=== PATIENT | female | born 1940 | race Caucasian/White ===

== ENCOUNTER 2017-04-11 13:54 | Emergency (ER) | payer MEDICARE, OTHER ==
[2017-04-11 14:39] LABS: Bilirubin Negative (Negative); Blood, Urine Negative (Negative); Clarity CLEAR (Clear); Glucose, Urine (Dipstick) Negative (Negative); Leukocyte Negative (Negative); Nitrite Negative (Negative); Protein, Urine (Dipstick) Trace mg/dL (Neg-Trace); Specific Gravity, Urine 1.027 (1.002-1.036); Urobilinogen 0.2 mg/dL (0.2-1.0)
[2017-04-11 14:43] LABS: #Eosinphils 0.1 thou/uL (0.0-0.7); #Lymphocytes 1.7 thou/uL (1.20-3.40); #Monocytes 0.6 thou/uL (0.11-0.59); %Basophils 0.5 % (0.0-1.0); %Eosinophils 1.1 % (0.0-10.0); %Monocytes 5.6 % (0.0-10.0); %Neutrophils 76.9 % (42.0-75.0); Hemoglobin 14.6 g/dL (12.0-16.0); Mean Corpuscular Hemoglobin 28.9 pg (27.0-31.0); Mean Corpuscular Volume 90.4 fl (81.0-99.0); Mean Platelet Volume 8.2 fL (7.4-10.4); Platelet Count 225 thou/uL (130-400); RBC Distribution Width 13.6 % (11.5-14.5); Red Blood Cell (RBC) Count 5.05 mill/uL (4.20-5.40); White Blood Cell (WBC) Count 10.4 thou/uL (4.8-10.8)
[2017-04-11 15:07] LABS: ALT (SGPT) 13 U/L (8-55); AST (SGOT) 17 U/L (5-34); Albumin 3.6 g/dL (3.4-4.8); Alkaline Phosphatase 83 U/L (40-150); Anion Gap 13 mmol/L (10-20); BUN (Urea Nitrogen) 20 mg/dL (9.8-20.1); Bilirubin, Total 0.4 mg/dL (0.2-1.2); Calc. Creatinine Clearance 0 mL/min (70-130); Calcium 9.3 mg/dL (7.8-10.44); Carbon Dioxide 24 mmol/L (23-31); Chloride 107 mmol/L (98-107); Estimated GFR-MDRD 51; Globulin 3.6 g/dL (2.4-3.5); Glucose 111 mg/dL (83-110); Potassium 4.3 mmol/L (3.5-5.1); Protein, Total 7.2 g/dL (6.0-8.3); Sodium 140 mmol/L (136-145)
[2017-04-11] MEDS ORDERED: Diphenoxylate HCl/Atropine Tablet ONE (15:51)
== END 2017-04-11 15:58 | disposition home or self-care (01) ==
LOC: ERS 13:54
DX: R19.7 Diarrhea, unspecified (principal); F41.9 Anxiety disorder, unspecified; F32.9 Major depressive disorder, single episode, unspecified; Z79.899 Other long term (current) drug therapy
CPT/HCPCS: 36415; 80053; 81003; 85025; 99284

== ENCOUNTER 2017-04-19 11:27 | Emergency (ER) | payer MEDICARE, OTHER ==
[2017-04-19 13:15] LABS: #Eosinphils 0.1 thou/uL (0.0-0.7); #Lymphocytes 1.8 thou/uL (1.20-3.40); #Monocytes 0.6 thou/uL (0.11-0.59); #Neutrophils 6.8 thou/uL (1.40-6.50); %Basophils 0.1 % (0.0-1.0); %Eosinophils 0.9 % (0.0-10.0); %Lymphocytes 18.8 % (21.0-51.0); %Monocytes 6.8 % (0.0-10.0); %Neutrophils 73.4 % (42.0-75.0); Hemoglobin 14.6 g/dL (12.0-16.0); Mean Corpuscular Hemoglobin 28.4 pg (27.0-31.0); Mean Corpuscular Volume 91.8 fl (81.0-99.0); Mean Platelet Volume 8.7 fL (7.4-10.4); Platelet Count 194 thou/uL (130-400); Red Blood Cell (RBC) Count 5.12 mill/uL (4.20-5.40); White Blood Cell (WBC) Count 9.3 thou/uL (4.8-10.8)
[2017-04-19 13:26] LABS: PTT 24.8 SEC (22.9-36.1); Prothrombin Time 13.7 SEC (12.0-14.7)
[2017-04-19 13:35] LABS: ALT (SGPT) 10 U/L (8-55); AST (SGOT) 16 U/L (5-34); Albumin 3.6 g/dL (3.4-4.8); Alkaline Phosphatase 80 U/L (40-150); Anion Gap 14 mmol/L (10-20); BUN (Urea Nitrogen) 19 mg/dL (9.8-20.1); Bilirubin, Total 0.4 mg/dL (0.2-1.2); CK (CPK) 37 U/L (29-168); Calc. Creatinine Clearance 0 mL/min (70-130); Calcium 9.3 mg/dL (7.8-10.44); Carbon Dioxide 23 mmol/L (23-31); Chloride 104 mmol/L (98-107); Estimated GFR-MDRD 54; Globulin 3.1 g/dL (2.4-3.5); Glucose 85 mg/dL (83-110); Lipase 9 U/L (8-78); Potassium 3.9 mmol/L (3.5-5.1); Protein, Total 6.7 g/dL (6.0-8.3); Sodium 137 mmol/L (136-145)
[2017-04-19] MEDS ORDERED: ISOVUE-370 76%-LOCM 1 ML ONE (13:38)
[2017-04-19 13:42] LABS: CKMB 1.4 ng/mL (0-6.6); Troponin I 0.056 ng/mL (< 0.028)
--- NOTE | 2017-04-19 13:44 | RAD ---
PORTABLE CHEST: HISTORY: Cough. Diarrhea. COMPARISON: Prior chest film from 04/08/2008. FINDINGS: The heart size is mildly prominent but stable. There is a calcified nodule in the left lung base, wh ich is stable. There is an opacity along the cardiac border, in the left mid lung, which is a stable finding. There is no evidence of vascular congestion, edema, or effusion. No focal infiltrate. Figueroa rgical clips in the right axilla indicate prior right breast procedure. IMPRESSION: Stable findings without acute interval change. POS: [facility]
[2017-04-19 15:21] LABS: Troponin I 0.051 ng/mL (< 0.028)
--- NOTE | 2017-04-19 15:44 | CT ---
CT ABDOMEN AND PELVIS WITH CONTRAST 04/19/17 COMPARISON: 10/18/08. HISTORY: Chronic diarrhea and abdominal pain. TECHNIQUE: Multiple contiguous axial images were obtained in a CT of the abdomen and pelvis with contrast. Coron al reformats were performed. FINDINGS: There are subcentimeter hypodensities in the bilateral kidneys which likely represents cysts. The hunter er, gallbladder, adrenal glands, spleen, and pancreas are unremarkable. No free air, free fluid, or s tranding changes are seen in the abdomen and pelvis. Patient is status post hysterectomy. The large and small bowel are unremarkable. Atherosclerotic calcifications are seen in the aorta. No abdominal or pelvic lymphadenopathy are seen . Degenerative changes are seen in the spine. The visualized inferior thorax and abdominal wall soft ti ssues are unremarkable. IMPRESSION: 1. No evidence of acute intra-abdominal or pelvic abnormality. 2. Renal cysts. POS: [facility]
[2017-04-19 16:16] LABS: Bilirubin Negative (Negative); Blood, Urine Trace (Negative); Glucose, Urine (Dipstick) Negative (Negative); Leukocyte Negative (Negative); Nitrite Negative (Negative); Protein, Urine (Dipstick) Negative (Neg-Trace); Urobilinogen 0.2 mg/dL (0.2-1.0)
[2017-04-19 16:27] LABS: Clarity CLEAR (Clear)
[2017-04-19 16:33] LABS: Bacteria/HPF 1+ HPF (None Seen); Hyaline Casts/LPF NONE SEEN LPF (0-3 Hyaline); RBC/HPF 0-3 HPF (0-3); WBC/HPF 0-3 HPF (0-3)
--- NOTE | 2017-04-23 17:46 | EKG ---
Test Reason : DIAGNOSING PURPOSES Blood Pressure : / mmHG Vent. Rate : 079 BPM Atrial Rate : 079 BPM P-R Int : 128 ms QRS Dur : 092 ms QT Int : 412 ms P-R-T Axes : 042 -06 043 degrees QTc Int : 472 ms Normal sinus rhythm Normal ECG Confirmed by BETITO CHAMPAGNE, SRINIVAS ([id number]), editor house organ PATRICIA ENGLE ([id number]) on 04/23/2017 5:46:12 PM Referred By: Confirmed By:SRINIVAS CISSE MD
== END 2017-04-19 16:00 | disposition home or self-care (01) ==
LOC: ERS 11:27
DX: E86.0 Dehydration (principal); R19.7 Diarrhea, unspecified; R79.89 Other specified abnormal findings of blood chemistry; F41.9 Anxiety disorder, unspecified; F32.9 Major depressive disorder, single episode, unspecified; Z79.899 Other long term (current) drug therapy; Z85.3 Personal history of malignant neoplasm of breast
CPT/HCPCS: 36415; 71045; 74177; 80053; 81003; 81015; 82550; 82553; 83605; 83690; 83880; 84484; 85025; 85610; 85730; 87040; 87086; 93005; 96360; 96361

== ENCOUNTER 2017-08-19 11:03 | Outpatient (CLI) | payer MEDICARE, OTHER | END 2017-08-19 11:04 | disposition home or self-care (01) | LOC: BICMAMMO 11:03 | PROVIDERS: ATTEND Family Medicine | DX: Z12.31 Encounter for screening mammogram for malignant neoplasm of breast (principal); Z85.3 Personal history of malignant neoplasm of breast | CPT/HCPCS: 77063; 77067 ==

== ENCOUNTER 2017-12-20 09:53 | Outpatient (CLI) | payer MEDICARE, OTHER ==
--- NOTE | 2017-12-20 12:00 | RAD ---
TWO VIEW CHEST: History: Cough. Comparison: 2007 FINDINGS: Lungs show no evidence of infiltrate. The heart is mildly enlarged but relatively stable from prior e xam. Vascular markings show mild engorgement which is slightly more prominent than previously. Calcif ied granuloma in the left lower lung is again noted. No effusion. Osseous structures are unremarkable for age. IMPRESSION: Borderline cardiomegaly and mild vascular engorgement. No focal infiltrate identified. POS: [facility]
== END 2017-12-20 09:54 | disposition home or self-care (01) ==
LOC: BICRAD 09:53
PROVIDERS: ATTEND Family Medicine
DX: R05 Cough (principal); I51.7 Cardiomegaly; R09.89 Other specified symptoms and signs involving the circulatory and respiratory systems
CPT/HCPCS: 71046

== ENCOUNTER 2018-07-28 12:27 | Outpatient (CLI) | payer MEDICARE, OTHER ==
--- NOTE | 2018-07-28 12:42 | RAD ---
Exam: CHEST 2 VIEWS: COMPARISON: 12/20/2017. HISTORY: Dyspnea FINDINGS: Chronic changes in lung parenchyma. No pleural effusion. Normal cardiac silhouette. Minimal atheroscl erosis of the aorta. No pneumothorax or osseous abnormalities. Right axillary surgical clips are redemonstrated. IMPRESSION: No significant interval change. Transcribed Date/Time: 07/28/2018 1:07 PM
== END 2018-07-28 12:28 | disposition home or self-care (01) ==
LOC: RAD 12:27
PROVIDERS: ATTEND Internal Medicine Pulmonary Disease
DX: R06.00 Dyspnea, unspecified (principal)
CPT/HCPCS: 71046

== ENCOUNTER 2018-11-06 14:26 | Outpatient (CLI) | payer MEDICARE, OTHER ==
[2018-11-06 17:27] LABS: #Basophils 0.1 thou/uL (0.0-0.2); #Eosinphils 0.2 thou/uL (0.0-0.7); #Lymphocytes 2.3 thou/uL (1.20-3.40); #Monocytes 0.5 thou/uL (0.11-0.59); #Neutrophils 5.6 thou/uL (1.40-6.50); %Basophils 0.8 % (0.0-1.0); %Eosinophils 2.4 % (0.0-10.0); %Monocytes 5.9 % (0.0-10.0); %Neutrophils 64.9 % (42.0-75.0); Mean Corpuscular HGB CONC 33.3 g/dL (32.0-36.0); Mean Corpuscular Hemoglobin 30.1 pg (27.0-31.0); Mean Corpuscular Volume 90.5 fL (78.0-98.0); Mean Platelet Volume 9.2 fL (7.4-10.4); Platelet Count 226 thou/uL (130-400); RBC Distribution Width 13.4 % (11.5-14.5); Red Blood Cell (RBC) Count 4.65 mill/uL (4.20-5.40); White Blood Cell (WBC) Count 8.6 thou/uL (4.8-10.8)
[2018-11-06 18:27] LABS: ALT (SGPT) 14 U/L (8-55); AST (SGOT) 15 U/L (5-34); Alkaline Phosphatase 95 U/L (40-150); Anion Gap 13 mmol/L (10-20); BUN (Urea Nitrogen) 19 mg/dL (9.8-20.1); Bilirubin, Total 0.2 mg/dL (0.2-1.2); Calc. Creatinine Clearance 0 mL/min (70-130); Carbon Dioxide 24 mmol/L (23-31); Cardiac Risk 5.2 (Less than 4.5); Chloride 107 mmol/L (98-107); Cholesterol 230 mg/dl (< 200 Desired); Estimated GFR-MDRD 40; Globulin 2.5 g/dL (2.4-3.5); Glucose 102 mg/dL (83-110); HDL Cholesterol 44 mg/dL (>60 Neg Risk); LDL Cholesterol, Calculated 152 mg/dL; Potassium 4.2 mmol/L (3.5-5.1); Protein, Total 6.5 g/dL (6.0-8.3); Sodium 140 mmol/L (136-145); Triglycerides 169 mg/dL (Less than 150)
== END 2018-11-06 14:27 | disposition home or self-care (01) ==
LOC: RAD-FRANK 14:26
PROVIDERS: ATTEND Family Medicine
DX: E53.8 Deficiency of other specified B group vitamins (principal); I10 Essential (primary) hypertension; R53.82 Chronic fatigue, unspecified
CPT/HCPCS: 36415; 80053; 80061; 82607; 84443; 85025

== ENCOUNTER 2018-12-21 13:20 | Outpatient (CLI) | payer MEDICARE, OTHER ==
--- NOTE | 2018-12-21 14:56 | ULT ---
Abdominal aortic ultrasound CLINICAL HISTORY: Screening FINDINGS: Proximal abdominal aorta measures 2.3 cm in diameter, mid abdominal aorta 2.1 cm, and dista l abdominal aorta 1.8 cm. No aneurysmal dilatation of the iliac arteries is visualized. There is limited visualization by persistent shadowing of the retroperitoneum, due to bowel content. IMPRESSION: No sonographic evidence of aneurysmal dilatation of the imaged abdominal aorta.
--- NOTE | 2018-12-21 15:02 | ULT ---
BILATERAL LOWER EXTREMITY ARTERIAL ULTRASOUND: CLINICAL HISTORY: Femoral bruit TECHNIQUE: Sharma-scale and Doppler color-flow with spectral analysis. FINDINGS: Triphasic wave-form of the right common femoral artery is demonstrated and there is a predominant bip hasic wave-form of the left common femoral artery. Otherwise bilaterally from the level of the proximal thigh and distally there is diffuse monophasic wave-form elicited. The peak systolic velocity of the lower extremity arterial system of the right lower extremity is 164 cm/s at level of profunda femoris artery. The peak systolic velocity of the left lower extremity is at the level of the left common femoral artery and is 179 cm/s. IMPRESSION: Predominant monophasic wave-form throughout each lower extremity as above from the level of the proxi mal thigh distally. This does indicate a moderate to severe degree of peripheral vascular disease involving each lower extremity. Vascular surgery consultation would prove useful for further care. Transcribed Date/Time: 12/21/2018 3:23 PM
== END 2018-12-21 13:21 | disposition home or self-care (01) ==
LOC: ULT 13:20
PROVIDERS: ATTEND Family Medicine
DX: R09.89 Other specified symptoms and signs involving the circulatory and respiratory systems (principal); I73.9 Peripheral vascular disease, unspecified
CPT/HCPCS: 76775; 93923

== ENCOUNTER 2019-02-08 13:16 | Outpatient (CLI) | payer MEDICARE, OTHER ==
--- NOTE | 2019-02-08 13:47 | ULT ---
Pelvic sonogram transabdominal imaging HISTORY: Pelvic pain. Pelvic mass. FINDINGS: Urinary bladder is unremarkable. Uterus surgically absent. No free fluid is evident. Neither ovary is visualized. No solid or cystic masses. IMPRESSION: Status post hysterectomy. No significant abnormalities are demonstrated.
--- NOTE | 2019-02-08 13:52 | ULT ---
Venous duplex sonogram right lower extremity HISTORY: Right leg pain and edema. FINDINGS: Right common femoral vein and greater saphenous junction were evaluated along with the femo ral, deep femoral, popliteal, and posterior tibial veins. There is good color and spectral Doppler flow, compression, and augmentation. IMPRESSION: No sonographic evidence of DVT within the right lower extremity.
== END 2019-02-08 13:17 | disposition home or self-care (01) ==
LOC: ULT 13:16
PROVIDERS: ATTEND Family Medicine
DX: R60.0 Localized edema (principal); R19.00 Intra-abdominal and pelvic swelling, mass and lump, unspecified site; Z90.710 Acquired absence of both cervix and uterus
CPT/HCPCS: 76856

== ENCOUNTER 2019-07-18 07:56 | Outpatient (CLI) | payer MEDICARE, OTHER ==
--- NOTE | 2019-07-18 09:38 | CT ---
EXAM: CT angiogram abdomen, pelvis, and bilateral lower extremities with intravenous contrast and 3-D recon structions PROVIDED CLINICAL HISTORY: Right lower extremity pain. History of prior surgery on arteries right lower extremity. Patient state s pain and swelling right lower extremity. COMPARISON: CT abdomen and pelvis on 04/19/2017 FINDINGS: Minimal bibasilar groundglass densities are seen likely attributable to atelectasis. The heart is mil dly enlarged. A hiatal hernia is present with the fundus of the stomach above the level of the hemidiaphragms. The liver, spleen, pancreas, bilateral adrenal glands, and partially distended urinary bladder demons trate a normal CT appearance. Subcentimeter too small to characterize hypodense lesions are seen in each kidney. There are also low-density areas within each renal hilum which were present on the prior study but slightly more prominent than on the prior exam. Findings on the left are likely attributable to parapelvic renal cysts. However, mild bilateral hydronephrosis is a possibility. The ureters are normal in caliber bilaterally, and no renal or ureteral calculi are seen. Renal collecting structures are difficult further evaluate without delayed imaging. Atherosclerotic calcifications and plaque are seen in the abdominal aorta and iliac arteries. The abd ominal aorta is normal in caliber without evidence of an aortic dissection. Mild atherosclerotic plaque is seen within the proximal celiac artery with mild degree of narrowing. The celiac and superi or mesenteric arteries are otherwise patent. Inferior mesenteric artery is also patent. Atherosclerotic plaque limits evaluation of the renal artery origins. However, there is suggestion of at least mild narrowing involving each renal artery origin. Mild multifocal narrowing is seen involving the right common iliac artery. The left common iliac mariola ry is patent. Mild narrowing is present at the origin of each internal iliac artery. Bilateral external iliac arteries are patent. Right lower extremity: Right common femoral artery is patent. Mild narrowing is present involving the proximal right superfi cial femoral artery with additional multifocal areas of mild narrowing with moderate narrowing seen at the level of the adductor canal. Right profunda femoral artery is patent. Popliteal artery is bell nt, and there is evidence of a three-vessel runoff to the right lower extremity. Subcutaneous soft tissue swelling is seen involving the right lower extremity below the level of the knee with greater degree of subcutaneous soft tissue swelling at the level of the ankle and involving the right foot. Left lower treatment: Left common femoral and profunda femoral arteries are patent. Mild atherosclerotic plaque is seen thr oughout the left superficial femoral artery with multifocal areas of mild narrowing seen greatest at the level of the adductor canal. A vascular stent is present in the above the knee left popliteal artery. Although the lumen is difficult to evaluate, the stent does appear patent. Contrast is seen within the popliteal artery just below the level of the stent. A left total knee prosthesis is presen t which completely obscures remainder of the left popliteal artery. Proximal anterior tibial artery and tibioperoneal trunk are also partially obscured due to artifact from left knee prosthesis. There otherwise appears to be three-vessel runoff to the left lower extremity . Subcutaneous edema is seen involving the left lower extremity from the level of the knee to the foot and ankle. IMPRESSION: 1. Scattered atherosclerotic plaque seen within the arterial vessels involving the abdominal aorta an d iliac arteries as well as superficial femoral arteries bilaterally. 2. Multifocal areas of mild narrowing involving each superficial femoral artery with greater degree o f narrowing involving the right superficial femoral artery at the level of the adductor canal with at least moderate narrowing present. 2. Portion of the left popliteal artery is obscured as well as the most proximal left anterior tibial artery and tibioperoneal trunk secondary to artifact from left knee prosthesis. There is otherwise three-vessel runoff to the bilateral lower extremities. 3. Bilateral lower extremity edema. 4. Fullness in the region of each renal collecting systems bilaterally. Findings on the left are thou ght to be related to parapelvic left renal cysts. However, mild bilateral hydronephrosis is a possibility. The ureters are normal in caliber bilaterally. The renal collecting systems are difficul t further evaluate without delayed imaging. 5. Subcentimeter too small to characterize hypodense lesions in each kidney. 6. Cardiomegaly. 7. Hysterectomy. 8. Hiatal hernia.
[2019-07-18] MEDS ORDERED: Iopamidol 370 76% 100 ML VIAL ONE (10:27)
== END 2019-07-18 07:57 | disposition home or self-care (01) ==
LOC: CT 07:56
PROVIDERS: ATTEND Internal Medicine Cardiovascular Disease
DX: M79.604 Pain in right leg (principal); I73.9 Peripheral vascular disease, unspecified; K44.9 Diaphragmatic hernia without obstruction or gangrene; I51.7 Cardiomegaly; R60.0 Localized edema; N28.89 Other specified disorders of kidney and ureter; I70.203 Unspecified atherosclerosis of native arteries of extremities, bilateral legs; I70.0 Atherosclerosis of aorta; Z96.652 Presence of left artificial knee joint; Z90.710 Acquired absence of both cervix and uterus
CPT/HCPCS: 75635; 82565; Q9967

== ENCOUNTER 2019-08-08 09:38 | Outpatient (CLI) | payer MEDICARE, OTHER ==
--- NOTE | 2019-08-08 13:06 | MRI ---
LUMBAR SPINE MRI WITHOUT IV CONTRAST: HISTORY: Right leg pain and low back pain. COMPARISON: 08/16/2011. FINDINGS: No significant abnormal marrow edema. The conus medullaris region appears unremarkable terminating a t the inferior L2 vertebral body level. Bilateral renal parapelvic cysts. Diffuse spondylosis with disk desiccation change and facet arthrosis. T12-L1 disk: Unremarkable. L1-L2 disk: Bilateral recess stenosis and mild foraminal stenosis. L2-L3 disk: Mild bilateral recess and moderate bilateral foraminal stenosis. L3-L4 disk: Moderate central and moderate to severe lateral recess stenosis and foraminal stenosis. L4-L5 disk: Moderate central canal and lateral recess and foraminal stenosis. Right-sided posterola teral annular fissure. L5-S1 disk: Mild left lateral recess stenosis. IMPRESSION: Multilevel variable severity canal, lateral recess, and foraminal stenosis. Somewhat low-lying conus medullaris down to lower L2 level. Bilateral renal parapelvic cysts. POS: [facility]
== END 2019-08-08 09:39 | disposition home or self-care (01) ==
LOC: BICMRI 09:38
PROVIDERS: ATTEND Family Medicine
DX: M79.604 Pain in right leg (principal); N28.1 Cyst of kidney, acquired; M48.061 Spinal stenosis, lumbar region without neurogenic claudication
CPT/HCPCS: 72148

== ENCOUNTER 2019-09-04 10:09 | Outpatient (CLI) | payer MEDICARE, OTHER ==
--- NOTE | 2019-09-04 11:04 | MMO ---
Bilateral MAMMO Bilat Screen [facility]. CLINICAL HISTORY: Patient is 78 years old and is seen for screening. The patient has no family history of breast cancer. The patient has a history of bilateral malignant (generic) at age 64. 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 VIEWS: The views performed were: bilateral craniocaudal with tomosynthesis and bilateral mediolateral oblique with tomosynthesis. FILMS COMPARED: The present examination has been compared to prior imaging studies performed at [facility] on 08/19/2017, and at [facility] on 04/10/2014, 04/11/2015 and 07/21/2016. This study has been interpreted with the assistance of computer-aided detection. MAMMOGRAM FINDINGS: There are scattered fibroglandular densities. Finding 1: There are stable benign appearing calcifications seen in both breasts. There are also vascular calcifications. Finding 2: There are stable post-surgical scars seen in both breasts. There are no suspicious masses, suspicious calcifications, or new areas of architectural distortion. IMPRESSION: THERE IS NO MAMMOGRAPHIC EVIDENCE OF MALIGNANCY. A ROUTINE FOLLOW-UP MAMMOGRAM IN 1 YEAR IS RECOMMENDED. THE RESULTS OF THIS EXAM WERE SENT TO THE PATIENT. ACR BI-RADS Category 2 - Benign finding MAMMOGRAPHY NOTE: 1. A negative mammogram report should not delay a biopsy if a dominant of clinically suspicious mass is present. 2. Approximately 10% to 15% of breast cancers are not detected by mammography. 3. Adenosis and dense breasts may obscure an underlying neoplasm. Reported by: ROSE KEARNS MD Electonically Signed: [id number]
== END 2019-09-04 10:10 | disposition home or self-care (01) ==
LOC: BICMAMMO 10:09
PROVIDERS: ATTEND Family Medicine
DX: Z12.31 Encounter for screening mammogram for malignant neoplasm of breast (principal); Z98.82 Breast implant status; Z98.890 Other specified postprocedural states
CPT/HCPCS: 77063; 77067

== ENCOUNTER 2020-03-06 13:21 | Emergency (ER) | payer MEDICARE, OTHER ==
--- NOTE | 2020-03-06 15:13 | CT ---
Exam: CT brain PROVIDED CLINICAL HISTORY: Head injury COMPARISON: None FINDINGS: The ventricular system is normal in size and morphology. No evidence for intracranial hemorrhage or mass effect. There is conspicuous frontal scalp swelling without evidence for skull fracture. IMPRESSION: No evidence for intracranial hemorrhage or mass effect.
--- NOTE | 2020-03-06 15:14 | CT ---
CT cervical spine noncontrast HISTORY: Fall. Injury. FINDINGS: Vertebral body heights and alignment are maintained. Cervicothoracic junction is intact. No acute fracture or dislocation are apparent. Moderate osteophytosis throughout the vertebral bodies and facets. Multilevel central canal and foraminal stenoses, worst on the left at the C4-5 level. Prominent calcification of the arterial structures with probable high-grade stenosis at the origin of the right internal carotid artery. IMPRESSION : Prominent degenerative changes cervical spine. No acute osseous abnormalities are demonstrated. Prominent atherosclerosis. Probable high-grade stenosis at the right ICA origin.
[2020-03-06] MEDS ORDERED: Morphine 4 MG/ML VIAL ONE (15:28)
--- NOTE | 2020-03-06 15:40 | RAD ---
Right humerus 2 views HISTORY: Injury. FINDINGS: No acute osseous abnormalities are demonstrated.
--- NOTE | 2020-03-06 15:41 | RAD ---
EXAM: XR Wrist 3 Rt View STANDARD PROVIDED CLINICAL HISTORY: Pain status post injury COMPARISON: None FINDINGS: There is a comminuted intra-articular fracture involving the distal radius with associated volar disp lacement of the distal fracture fragments. There is a distracted ulnar styloid fracture. Degenerative changes are seen involving the first CMC and STT joints. IMPRESSION: Distal radial and ulnar fractures as above.
--- NOTE | 2020-03-06 15:42 | RAD ---
EXAM: XR Forearm Rt 2 View STANDARD PROVIDED CLINICAL HISTORY: Pain status post injury COMPARISON: None FINDINGS: Comminuted intra-articular fracture of the distal radius is demonstrated with associated volar displa cement of the distal fragments. Ulnar styloid fracture is also seen. No additional fracture is evident. IMPRESSION: Distal radial and ulnar fractures as above.
--- NOTE | 2020-03-06 17:31 | RAD ---
Exam:3 views right wrist HISTORY: Status post reduction from fracture/fall. COMPARISON: 03/06/2020 at 3:10 PM FINDINGS: Limited evaluation of fine bony detail due to overlying casting material. There is evidence of a distal radius fracture with persistent subluxation and comminution. Displaced ulnar styloid fracture is identified. The degree of malalignment has slightly improved but does remain. IMPRESSION: 1. Interval placement of external fiberglass casting material. 2. Improved alignment. Subluxation and comminution do remain.
[2020-03-06] MEDS ORDERED: PROPOFOL 20 ML ONE (17:38)
[2020-03-07 02:23] LABS: SARS-CoV-2 MS2 Positive; SARS-CoV-2 N Gene Negative; SARS-CoV-2 S Gene Negative; SARS-CoV-2 by NAA Not Detected (NotDetected); SARS-CoV-2 orf1ab Negative
== END 2020-03-06 18:30 | disposition home or self-care (01) ==
LOC: ERS 13:21
DX: S52.571A Other intraarticular fracture of lower end of right radius, initial encounter for closed fracture (principal); S52.611A Displaced fracture of right ulna styloid process, initial encounter for closed fracture; I10 Essential (primary) hypertension; K21.9 Gastro-esophageal reflux disease without esophagitis; W01.0XXA Fall on same level from slipping, tripping and stumbling without subsequent striking against object, initial encounter
CPT/HCPCS: 70450; 72125; 73060; 73090; 73110; U0003; 87635; 96374; 96375; J2270; J2704

== ENCOUNTER 2020-03-11 12:52 | Day surgery (SDC) | payer MEDICARE, OTHER ==
[~2020-03-11 12:52] MED LIST: Bupivacaine HCl 0.5%/Epinephrine 1:200,000/PF 30 ml Vial ONE; Dexamethasone 20 MG/5 ML VIAL ONE; Lidocaine 1% PF 5 ML VIAL ONE; Ondansetron PF 4 MG/2 ML Vial ONE; PROPOFOL 200 MG/20 ML VIAL ONE
[2020-03-11 13:58] LABS: Hemoglobin 12.9 g/dL (12.0-16.0); Mean Corpuscular HGB CONC 31.6 g/dL (32.0-36.0); Mean Corpuscular Hemoglobin 27.8 pg (27.0-31.0); Mean Platelet Volume 9.1 fL (7.4-10.4); Platelet Count 227 thou/uL (130-400); RBC Distribution Width 13.9 % (11.5-14.5); Red Blood Cell (RBC) Count 4.66 mill/uL (4.20-5.40); White Blood Cell (WBC) Count 11.7 thou/uL (4.8-10.8)
--- NOTE | 2020-03-11 16:06 | RAD ---
Exam: Intraoperative fluoroscopy HISTORY: ORIF, right wrist FINDINGS: 2 intraoperative views demonstrate placement of internal fixation plate at the level of dis tulio radius. Displaced ulnar styloid fracture is identified Exposure: 6.2 seconds, 0.18 mGy IMPRESSION: Right wrist intraoperative fluoroscopy for ORIF.
[2020-03-11] MEDS ORDERED: Fentanyl 100 MCG/2 ML VIAL ONE ×2 (16:23→16:58)
[2020-03-11] MEDS ORDERED: Labetalol HCl 100 MG/20 ML VIAL ONE (16:43)
[2020-03-11] MEDS ORDERED: HYDROcodone/Acetaminophen 5/325 mg Tablet ONE (17:18)
[2020-03-11] MEDS ORDERED: Sodium Chloride 0.9% 10 ML ONE (17:27)
[2020-03-11] MEDS ORDERED: Ondansetron PF 4 MG/2 ML Vial ONE (17:27)
--- NOTE | 2020-03-11 19:28 | OP ---
DATE OF PROCEDURE: 03/11/2020 PROCEDURE PERFORMED: Open reduction and internal fixation of right distal radius fracture. PREOPERATIVE DIAGNOSIS: Displaced right distal radius fracture. POSTOPERATIVE DIAGNOSIS: Displaced right distal radius fracture. COMPLICATIONS: None. ESTIMATED BLOOD LOSS: 100 mL. ADVERTISING CAMPAIGN MANAGER: Estelle Myers PA-C IMPLANTS: Synthes volar distal radial plate with locking and nonlocking screws. INDICATIONS: Ms. Madison is an 79-year-old female, who has fallen and fractured her right distal radius. She has been indicated for open reduction and internal fixation to restore anatomic alignment of the radius and promote healing. Risks have been reviewed in detail. She has elected to proceed with the operation. DESCRIPTION OF PROCEDURE: Ms. Madison was identified in the preoperative holding area. Her correct extremity was marked. She was carried to the operating room. She was positioned supine. General anesthesia was induced. The right upper extremity was exsanguinated with the Esmarch. We then began the procedure with an incision over the volar wrist. We dissected down through the subcutaneous tissues to the FCR tendon. The sheath was opened. We exposed the underlying tendon, retracted this. We then incised the deep aspect of the sheath and exposed the pronator quadratus muscle. This was elevated from the bone. At this point, we exposed the underlying distal radial fracture. We irrigated the hematoma and cleared the bony edges. We then reduced the fracture back into its anatomic position. Next, we applied a Synthes volar plate. We placed multiple screws proximally and multiple screws distally, locking the plate to the bone and holding our reduction. We had an anatomic reduction. At this point, we took x-ray images confirming this. We then thoroughly irrigated with copious lavage after all screws were placed. We then closed in layers and a sterile dressing was applied. The patient was taken to the recovery room in good condition without complication. Job ID: [id number]
== END 2020-03-11 17:43 | disposition home or self-care (01) ==
LOC: SDC 12:52
PROVIDERS: ATTEND Orthopaedic Surgery
PROC: 0PSH04Z Reposition Right Radius with Internal Fixation Device, Open Approach (ICD-10-PCS; principal; 2020-03-11)
DX: S52.501A Unspecified fracture of the lower end of right radius, initial encounter for closed fracture (principal); S52.611A Displaced fracture of right ulna styloid process, initial encounter for closed fracture; W19.XXXA Unspecified fall, initial encounter
CPT/HCPCS: 76000; 85027; 93005; 93010; C1713; J0690; J2405; J3010

== ENCOUNTER 2020-08-20 12:39 | Outpatient (CLI) | payer MEDICARE, OTHER | END 2020-08-20 12:40 | disposition home or self-care (01) | LOC: BICRAD 12:39 | PROVIDERS: ATTEND Family Medicine | DX: R05 Cough (principal); I51.7 Cardiomegaly | CPT/HCPCS: 71046 ==

== ENCOUNTER 2020-11-06 08:02 | Outpatient (CLI) | payer MEDICARE, OTHER | END 2020-11-06 08:03 | disposition home or self-care (01) | LOC: BICRAD 08:02 | PROVIDERS: ATTEND Internal Medicine Critical Care Medicine | DX: R06.00 Dyspnea, unspecified (principal) | CPT/HCPCS: 71046 ==

== ENCOUNTER 2021-03-06 17:09 | Emergency (ER) | payer MEDICARE, OTHER ==
[~2021-03-06 17:09] MED LIST changes: -Bupivacaine HCl 0.5%/Epinephrine 1:200,000/PF 30 ml Vial ONE; -Dexamethasone 20 MG/5 ML VIAL ONE; +Iopamidol 370 76% 100 ML VIAL ONE; -Lidocaine 1% PF 5 ML VIAL ONE; -Ondansetron PF 4 MG/2 ML Vial ONE; -PROPOFOL 200 MG/20 ML VIAL ONE
[2021-03-06] MEDS ORDERED: Ondansetron PF 4 MG/2 ML Vial ONE (17:47)
[2021-03-06 18:04] LABS: #Lymphocytes 0.8 thou/uL (1.20-3.40); #Monocytes 0.4 thou/uL (0.11-0.59); #Neutrophils 5.6 thou/uL (1.40-6.50); %Basophils 0.2 % (0.0-1.0); %Eosinophils 0.4 % (0.0-10.0); %Lymphocytes 11.9 % (21.0-51.0); %Monocytes 6.3 % (0.0-10.0); %Neutrophils 81.2 % (42.0-75.0); Hemoglobin 14.4 g/dL (12.0-16.0); Mean Corpuscular HGB CONC 32.5 g/dL (32.0-36.0); Mean Corpuscular Hemoglobin 28.7 pg (27.0-31.0); Mean Corpuscular Volume 88.2 fL (78.0-98.0); Mean Platelet Volume 9.2 fL (7.4-10.4); Platelet Count 147 thou/uL (130-400); RBC Distribution Width 14.1 % (11.5-14.5); Red Blood Cell (RBC) Count 5.03 mill/uL (4.20-5.40); White Blood Cell (WBC) Count 6.9 thou/uL (4.8-10.8)
[2021-03-06 18:21] LABS: ALT (SGPT) 20 U/L (8-55); AST (SGOT) 33 U/L (5-34); Albumin 3.3 g/dL (3.4-4.8); Alkaline Phosphatase 85 U/L (40-110); Anion Gap 14 mmol/L (10-20); BUN (Urea Nitrogen) 23 mg/dL (9.8-20.1); Bilirubin, Total 0.3 mg/dL (0.2-1.2); Calc. Creatinine Clearance 0 mL/min (70-130); Calcium 8.8 mg/dL (7.8-10.44); Carbon Dioxide 22 mmol/L (23-31); Chloride 105 mmol/L (98-107); Globulin 3.3 g/dL (2.4-3.5); Glucose 115 mg/dL (83-110); Protein, Total 6.6 g/dL (5.8-8.1); Sodium 137 mmol/L (136-145)
[2021-03-07 00:20] LABS: SARS-CoV-2 PCR by NAA DETECTED (NotDetected)
== END 2021-03-06 20:21 | disposition home or self-care (01) ==
LOC: ERS 17:09
DX: U07.1 COVID-19 (principal); K21.9 Gastro-esophageal reflux disease without esophagitis; I10 Essential (primary) hypertension; Z79.899 Other long term (current) drug therapy
CPT/HCPCS: 74177; 80053; 85025; 93005; 96374; 99284; U0003; U0005; 36415; J2405; Q9967

== ENCOUNTER 2021-05-29 17:42 | Emergency (ER) | payer MEDICARE, OTHER ==
[2021-05-29] MEDS ORDERED: Apixaban 5 MG TAB PO SCH (20:45)
== END 2021-05-29 20:58 | disposition home or self-care (01) ==
LOC: ERS 17:42
DX: I82.412 Acute embolism and thrombosis of left femoral vein (principal); I82.432 Acute embolism and thrombosis of left popliteal vein; I10 Essential (primary) hypertension; K21.9 Gastro-esophageal reflux disease without esophagitis; Z79.899 Other long term (current) drug therapy

== ENCOUNTER 2021-11-16 14:39 | Emergency (ER) | payer MEDICARE, OTHER ==
[2021-11-16 15:13] LABS: #Eosinphils 0.3 thou/uL (0.0-0.7); #Lymphocytes 2.5 thou/uL (1.20-3.40); #Monocytes 0.8 thou/uL (0.11-0.59); #Neutrophils 5.6 thou/uL (1.40-6.50); %Basophils 0.3 % (0.0-1.0); %Eosinophils 2.9 % (0.0-10.0); %Lymphocytes 27.3 % (21.0-51.0); %Monocytes 8.4 % (0.0-10.0); %Neutrophils 61.1 % (42.0-75.0); Hemoglobin 12.8 g/dL (12.0-16.0); Mean Corpuscular HGB CONC 32.3 g/dL (32.0-36.0); Mean Corpuscular Hemoglobin 28.9 pg (27.0-31.0); Mean Corpuscular Volume 89.5 fL (78.0-98.0); Mean Platelet Volume 9.2 fL (7.4-10.4); Platelet Count 184 thou/uL (130-400); RBC Distribution Width 13.6 % (11.5-14.5); Red Blood Cell (RBC) Count 4.42 mill/uL (4.20-5.40); White Blood Cell (WBC) Count 9.2 thou/uL (4.8-10.8)
[2021-11-16 15:46] LABS: ALT (SGPT) 16 U/L (8-55); AST (SGOT) 21 U/L (5-34); Albumin 3.5 g/dL (3.4-4.8); Alkaline Phosphatase 90 U/L (40-110); Anion Gap 17 mmol/L (10-20); BUN (Urea Nitrogen) 28 mg/dL (9.8-20.1); Bilirubin, Total 0.3 mg/dL (0.2-1.2); Calc. Creatinine Clearance 0 mL/min (70-130); Calcium 8.5 mg/dL (7.8-10.44); Carbon Dioxide 21 mmol/L (23-31); Chloride 107 mmol/L (98-107); Estimated GFR 34; Globulin 3.3 g/dL (2.4-3.5); Glucose 101 mg/dL (83-110); Potassium 4.7 mmol/L (3.5-5.1); Protein, Total 6.8 g/dL (5.8-8.1); Sodium 140 mmol/L (136-145)
== END 2021-11-16 19:35 | disposition home or self-care (01) ==
LOC: ERS 14:39
DX: R60.0 Localized edema (principal); I10 Essential (primary) hypertension
CPT/HCPCS: 36415; 71045; 80053; 83880; 84484; 85025; 93005; 93970

== ENCOUNTER 2022-03-28 10:46 | Observation (INO) | payer MEDICARE, OTHER ==
[2022-03-28] MEDS ORDERED: Acetaminophen 500 MG TAB ONE (11:27)
[2022-03-28] MEDS ORDERED: Ondansetron PF 4 MG/2 ML Vial ONE (11:27)
[2022-03-28 11:36] LABS: #Eosinphils 0.1 thou/uL (0.0-0.7); #Lymphocytes 0.7 thou/uL (1.20-3.40); #Monocytes 0.4 thou/uL (0.11-0.59); #Neutrophils 6.9 thou/uL (1.40-6.50); %Basophils 0.2 % (0.0-1.0); %Eosinophils 1.6 % (0.0-10.0); %Lymphocytes 8.2 % (21.0-51.0); %Monocytes 4.9 % (0.0-10.0); %Neutrophils 85.1 % (42.0-75.0); Hemoglobin 12.8 g/dL (12.0-16.0); Mean Corpuscular HGB CONC 32.1 g/dL (32.0-36.0); Mean Corpuscular Hemoglobin 29.2 pg (27.0-31.0); Mean Platelet Volume 8.6 fL (7.4-10.4); Platelet Count 203 10x3/uL (130-400); RBC Distribution Width 13.4 % (11.5-14.5); Red Blood Cell (RBC) Count 4.37 mill/uL (4.20-5.40); White Blood Cell (WBC) Count 8.1 10x3/uL (4.8-10.8)
[2022-03-28 11:58] LABS: ALT (SGPT) 16 U/L (8-55); AST (SGOT) 19 U/L (5-34); Albumin 3.1 g/dL (3.4-4.8); Alkaline Phosphatase 80 U/L (40-110); Anion Gap 14 mmol/L (10-20); BUN (Urea Nitrogen) 30 mg/dL (9.8-20.1); Bilirubin, Total 0.5 mg/dL (0.2-1.2); Calc. Creatinine Clearance 0 mL/min (70-130); Calcium 8.5 mg/dL (7.8-10.44); Carbon Dioxide 23 mmol/L (23-31); Chloride 105 mmol/L (98-107); Estimated GFR 37; Globulin 3.4 g/dL (2.4-3.5); Glucose 104 mg/dL (83-110); Lipase 5 U/L (8-78); Potassium 4.4 mmol/L (3.5-5.1); Protein, Total 6.5 g/dL (5.8-8.1); Sodium 138 mmol/L (136-145)
[2022-03-28] MEDS ORDERED: Iopamidol-370 76% 500 ML 1 ML ONE (12:31)
[2022-03-28 12:52] LABS: SARS-CoV-2 NAA Rapid Test Not Detected (NotDetected)
[2022-03-28] MEDS ORDERED: Aspirin Chewable 81 MG TAB ONE (12:59)
[2022-03-28] MEDS ORDERED: Nitroglycerin 0.4 MG TAB 1 EACH ONE (12:59)
[2022-03-28 16:54] LABS: Troponin I 0.012 ng/mL (< 0.028)
[2022-03-28] MEDS ORDERED: Ondansetron ODT 4 MG TAB PO PRN (16:57)
[2022-03-28] MEDS ORDERED: Acetaminophen 325 MG TAB PO PRN (16:57)
[2022-03-28] MEDS ORDERED: Ondansetron PF 4 MG/2 ML Vial IVP PRN (16:57)
[2022-03-28] MEDS ORDERED: Benzonatate 100 MG CAP PO PRN (17:02)
[2022-03-28] MEDS ORDERED: hydrALAZINE 20 MG/ML VIAL SLOW IVP PRN (17:03)
[2022-03-28] MEDS ORDERED: Lidocaine 2% Viscous Solution 10 ML, Aluminum & Magnesium Hydroxide 30 ML SSW SCH (17:30)
[2022-03-28 17:47] VITALS: BMI 39.5
[2022-03-28] MEDS: Lactated Ringer's 1,000 ML IV SCH (18:39)
[2022-03-28] MEDS ORDERED: hydrOXYzine 25 MG TAB PO PRN (19:07)
[2022-03-28] MEDS ORDERED: Bisacodyl 5 MG TAB PO PRN (19:07)
[2022-03-28] MEDS ORDERED: hydrALAZINE 25 MG TAB PO PRN (19:07)
[2022-03-28] MEDS ORDERED: Loperamide HCl 2 MG CAP PO PRN (19:11)
[2022-03-28] MEDS ORDERED: traZODone HCl 50 MG TAB PO PRN (19:24)
[2022-03-28] MEDS ORDERED: Famotidine 20 MG TAB PO SCH (21:00)
[2022-03-28] MEDS ORDERED: Lidocaine 5% Patch TD SCH ×2 (21:00)
[2022-03-28] MEDS ORDERED: Gabapentin 300 MG CAP PO SCH (21:00)
[2022-03-28] MEDS ORDERED: Mirtazapine 15 MG Soltab PO SCH (21:00)
[2022-03-28] MEDS: Transdermal Patch Removal TOP SCH (21:30)
[2022-03-28] MEDS: Valsartan 80 MG TAB PO SCH (21:36)
[2022-03-28] MEDS: Apixaban 5 MG TAB PO SCH (21:37)
[2022-03-28] MEDS: guaiFENesin ER 600 MG TAB PO SCH (21:37)
[2022-03-28] MEDS: Oxybutynin 5 MG TAB PO SCH (21:37)
[2022-03-28] MEDS: Budesonide 0.5 MG/2 ML NEB NEB SCH (21:57)
[2022-03-29] MEDS: Lactated Ringer's 1,000 ML IV SCH ×2 (02:17→08:57)
[2022-03-29 05:30] LABS: #Eosinphils 0.2 thou/uL (0.0-0.7); #Lymphocytes 1.6 thou/uL (1.20-3.40); #Monocytes 0.5 thou/uL (0.11-0.59); #Neutrophils 3.9 thou/uL (1.40-6.50); %Basophils 0.2 % (0.0-1.0); %Eosinophils 3.9 % (0.0-10.0); %Lymphocytes 25.5 % (21.0-51.0); %Monocytes 7.4 % (0.0-10.0); Hemoglobin 12.1 g/dL (12.0-16.0); Mean Corpuscular HGB CONC 30.8 g/dL (32.0-36.0); Mean Corpuscular Hemoglobin 28.5 pg (27.0-31.0); Mean Corpuscular Volume 92.4 fl (78.0-98.0); Mean Platelet Volume 9.8 fL (7.4-10.4); Platelet Count 169 10x3/uL (130-400); RBC Distribution Width 13.6 % (11.5-14.5); Red Blood Cell (RBC) Count 4.24 mill/uL (4.20-5.40); White Blood Cell (WBC) Count 6.1 10x3/uL (4.8-10.8)
[2022-03-29 06:06] LABS: Anion Gap 13 mmol/L (10-20); BUN (Urea Nitrogen) 24 mg/dL (9.8-20.1); Calc. Creatinine Clearance 56 mL/min (70-130); Calcium 8.4 mg/dL (7.8-10.44); Carbon Dioxide 20 mmol/L (23-31); Chloride 111 mmol/L (98-107); Estimated GFR 44; Glucose 93 mg/dL (83-110); Potassium 4.9 mmol/L (3.5-5.1); Sodium 139 mmol/L (136-145)
[2022-03-29] MEDS: Budesonide 0.5 MG/2 ML NEB NEB SCH (06:26)
[2022-03-29 08:37] LABS: Cardiac Risk 3.6 (Less than 4.5)
[2022-03-29] MEDS: Apixaban 5 MG TAB PO SCH (08:58)
[2022-03-29] MEDS: Oxybutynin 5 MG TAB PO SCH (08:58)
[2022-03-29] MEDS: Valsartan 80 MG TAB PO SCH (08:58)
[2022-03-29] MEDS: guaiFENesin ER 600 MG TAB PO SCH (08:58)
[2022-03-29] MEDS ORDERED: Furosemide 40 MG TAB PO SCH (09:00)
[2022-03-29] MEDS ORDERED: Fluticasone Propionate Nasal Spray 16 gm Bottle NASAL SCH (09:00)
[2022-03-29] MEDS ORDERED: Ergocalciferol 1.25 MG(50,000 UNITS) CAP PO SCH (09:00)
[2022-03-29] MEDS ORDERED: Bupropion 150 MG XL TAB PO SCH (09:00)
[2022-03-29] MEDS ORDERED: Gabapentin 300 MG CAP PO SCH (09:00)
[2022-03-29] MEDS ORDERED: Metoprolol Tartrate 25 MG TAB PO SCH (09:00)
[2022-03-29] MEDS: Transdermal Patch Removal TOP SCH (09:17)
[2022-03-29 12:08] VITALS: BP 134/61; TEMP 98.2
== END 2022-03-29 13:13 | disposition home or self-care (01) ==
LOC: ERS 10:46 → 2SW 17:18
PROVIDERS: ADMIT Student in an Organized Health Care Education/Training Program; ATTEND Student in an Organized Health Care Education/Training Program
DX: R07.89 Other chest pain (principal); J06.9 Acute upper respiratory infection, unspecified; A08.4 Viral intestinal infection, unspecified; I10 Essential (primary) hypertension; K21.9 Gastro-esophageal reflux disease without esophagitis; I25.10 Atherosclerotic heart disease of native coronary artery without angina pectoris; Z85.3 Personal history of malignant neoplasm of breast; Z86.718 Personal history of other venous thrombosis and embolism; Z79.01 Long term (current) use of anticoagulants; Z79.899 Other long term (current) drug therapy; Z20.822 Contact with and (suspected) exposure to COVID-19
CPT/HCPCS: 0240U; 71045; 74177; 80048; 80053; 80061; 83690; 84484 ×2; 85025 ×2; 87324; 87449; 93005; 94640; 96374; 99285; G0378 ×3; 36415; J2405; J7120; J7626; Q9967

== ENCOUNTER 2022-06-02 05:23 | Emergency (ER) | payer MEDICARE, OTHER ==
[2022-06-02] MEDS ORDERED: HYDROcodone/Acetaminophen 10/325 mg Tablet ONE (06:35)
== END 2022-06-02 06:41 | disposition home or self-care (01) ==
LOC: ERS 05:23
DX: L72.3 Sebaceous cyst (principal); I10 Essential (primary) hypertension; K21.9 Gastro-esophageal reflux disease without esophagitis; Z79.899 Other long term (current) drug therapy
CPT/HCPCS: 99283

== ENCOUNTER 2022-06-10 04:00 | Emergency (ER) | payer OTHER, MEDICARE ==
[2022-06-10 05:28] LABS: #Eosinphils 0.3 thou/uL (0.0-0.7); #Lymphocytes 3.8 thou/uL (1.20-3.40); #Monocytes 0.9 thou/uL (0.11-0.59); #Neutrophils 8.8 thou/uL (1.40-6.50); %Basophils 0.3 % (0.0-1.0); %Eosinophils 2.3 % (0.0-10.0); %Lymphocytes 27.4 % (21.0-51.0); %Monocytes 6.5 % (0.0-10.0); %Neutrophils 63.5 % (42.0-75.0); Hemoglobin 12.4 g/dL (12.0-16.0); Mean Corpuscular HGB CONC 33.8 g/dL (32.0-36.0); Mean Corpuscular Hemoglobin 30.5 pg (27.0-31.0); Mean Corpuscular Volume 90.3 fl (78.0-98.0); Mean Platelet Volume 9.1 fL (7.4-10.4); Platelet Count 197 10x3/uL (130-400); RBC Distribution Width 13.5 % (11.5-14.5); Red Blood Cell (RBC) Count 4.05 mill/uL (4.20-5.40); White Blood Cell (WBC) Count 13.8 10x3/uL (4.8-10.8)
[2022-06-10 05:49] LABS: ALT (SGPT) 11 U/L (8-55); AST (SGOT) 17 U/L (5-34); Albumin 3.4 g/dL (3.4-4.8); Alkaline Phosphatase 88 U/L (40-110); Anion Gap 16 mmol/L (10-20); BUN (Urea Nitrogen) 29 mg/dL (9.8-20.1); Bilirubin, Total 0.4 mg/dL (0.2-1.2); Calc. Creatinine Clearance 0 mL/min (70-130); Calcium 8.8 mg/dL (7.8-10.44); Carbon Dioxide 21 mmol/L (23-31); Chloride 107 mmol/L (98-107); Estimated GFR 24; Globulin 2.8 g/dL (2.4-3.5); Glucose 122 mg/dL (83-110); Protein, Total 6.2 g/dL (5.8-8.1); Sodium 140 mmol/L (136-145)
== END 2022-06-10 08:20 | disposition home or self-care (01) ==
LOC: ERS 04:00
DX: S01.01XA Laceration without foreign body of scalp, initial encounter (principal); I10 Essential (primary) hypertension; K21.9 Gastro-esophageal reflux disease without esophagitis; W18.30XA Fall on same level, unspecified, initial encounter
CPT/HCPCS: 12002; 36415; 70450; 72125; 80053; 85025

== ENCOUNTER 2022-06-10 10:20 | Inpatient (IN) | payer MEDICARE, OTHER ==
[2022-06-10 11:17] LABS: #Eosinphils 0.1 thou/uL (0.0-0.7); #Lymphocytes 1.5 thou/uL (1.20-3.40); #Monocytes 0.6 thou/uL (0.11-0.59); #Neutrophils 10.4 thou/uL (1.40-6.50); %Basophils 0.2 % (0.0-1.0); %Eosinophils 0.8 % (0.0-10.0); %Lymphocytes 11.6 % (21.0-51.0); %Monocytes 4.7 % (0.0-10.0); %Neutrophils 82.7 % (42.0-75.0); Hemoglobin 10.9 g/dL (12.0-16.0); Mean Corpuscular Hemoglobin 29.9 pg (27.0-31.0); Mean Corpuscular Volume 90.7 fl (78.0-98.0); Mean Platelet Volume 9.2 fL (7.4-10.4); Platelet Count 187 10x3/uL (130-400); RBC Distribution Width 13.4 % (11.5-14.5); Red Blood Cell (RBC) Count 3.64 mill/uL (4.20-5.40); White Blood Cell (WBC) Count 12.5 10x3/uL (4.8-10.8)
[2022-06-10 11:47] LABS: Bacteria/HPF 4+ HPF (None Seen); Bilirubin Negative (Negative); Blood, Urine Negative (Negative); Clarity Turbid (Clear); Glucose, Urine (Dipstick) Normal (Negative); Ketone, Urine Negative (Negative); Leukocyte 500 Leu/uL (Negative); Nitrite Negative (Negative); Protein, Urine (Dipstick) 20 mg/dL (Neg-Trace); RBC/HPF 0-3 HPF (0-3); Specific Gravity, Urine 1.016 (1.002-1.036); Urobilinogen Normal mg/dL (Less than 2); WBC/HPF Greater than 50 HPF (0-3); pH, Urine 5.5 (5.0-9.0)
[2022-06-10 11:48] LABS: ALT (SGPT) 12 U/L (8-55); AST (SGOT) 17 U/L (5-34); Albumin 3.3 g/dL (3.4-4.8); Alkaline Phosphatase 83 U/L (40-110); Anion Gap 14 mmol/L (10-20); BUN (Urea Nitrogen) 30 mg/dL (9.8-20.1); Bilirubin, Total 0.5 mg/dL (0.2-1.2); Calc. Creatinine Clearance 0 mL/min (70-130); Calcium 8.3 mg/dL (7.8-10.44); Carbon Dioxide 22 mmol/L (23-31); Chloride 107 mmol/L (98-107); Estimated GFR 22; Globulin 2.7 g/dL (2.4-3.5); Glucose 152 mg/dL (83-110); Potassium 4.2 mmol/L (3.5-5.1); Sodium 139 mmol/L (136-145)
[2022-06-10] MEDS ORDERED: Cefepime 2 GM VIAL ONE (12:05)
[2022-06-10] MEDS ORDERED: Vancomycin 1.5 GRAM/300 ML BAG 1.5 GM in Premix Bag 1 BAG IVPB SCH (12:30)
[2022-06-10] MEDS ORDERED: Lactated Ringer's 1,000 ML IV SCH ×2 (13:30→14:30)
[2022-06-10 13:56] LABS: Magnesium 2.1 mg/dL (1.6-2.6); Phosphorus 4.4 mg/dL (2.3-4.7)
[2022-06-10 15:45] LABS: Lactic Acid 1.9 mmol/L (0.5-2.2)
[2022-06-10 16:51] VITALS: BMI 40.6
[2022-06-11] MEDS: cefTRIAXone\\ROCEPHIN 1 GM in Sodium Chloride 0.9% 100 ML IVPB SCH (00:54)
[2022-06-11] MEDS: Acetaminophen 325 MG TAB PO PRN ×3 (01:41→16:54)
[2022-06-11 05:02] LABS: #Eosinphils 0.2 thou/uL (0.0-0.7); #Lymphocytes 2.7 thou/uL (1.20-3.40); #Monocytes 0.7 thou/uL (0.11-0.59); #Neutrophils 6.3 thou/uL (1.40-6.50); %Basophils 0.1 % (0.0-1.0); %Eosinophils 2.5 % (0.0-10.0); %Lymphocytes 27.5 % (21.0-51.0); %Monocytes 6.7 % (0.0-10.0); %Neutrophils 63.3 % (42.0-75.0); Mean Corpuscular Hemoglobin 29.2 pg (27.0-31.0); Mean Corpuscular Volume 91.4 fl (78.0-98.0); Mean Platelet Volume 9.5 fL (7.4-10.4); Platelet Count 173 10x3/uL (130-400); RBC Distribution Width 13.5 % (11.5-14.5); Red Blood Cell (RBC) Count 2.74 mill/uL (4.20-5.40); White Blood Cell (WBC) Count 9.9 10x3/uL (4.8-10.8)
[2022-06-11 05:30] LABS: Anion Gap 12 mmol/L (10-20); BUN (Urea Nitrogen) 27 mg/dL (9.8-20.1); Calc. Creatinine Clearance 41 mL/min (70-130); Calcium 8.1 mg/dL (7.8-10.44); Carbon Dioxide 22 mmol/L (23-31); Chloride 112 mmol/L (98-107); Estimated GFR 29; Glucose 97 mg/dL (83-110); Potassium 4.1 mmol/L (3.5-5.1); Sodium 142 mmol/L (136-145)
[2022-06-11] MEDS ORDERED: hydrALAZINE 25 MG TAB PO PRN (09:57)
[2022-06-11] MEDS ORDERED: Valsartan 80 MG TAB PO SCH (10:00)
[2022-06-11] MEDS ORDERED: Bisacodyl 5 MG TAB PO PRN (11:04)
[2022-06-11] MEDS ORDERED: Gabapentin 300 MG CAP PO SCH (11:15)
[2022-06-11] MEDS: Budesonide 0.5 MG/2 ML NEB NEB SCH (19:09)
[2022-06-11] MEDS: Gabapentin 300 MG CAP PO SCH (20:42)
[2022-06-11] MEDS: Valsartan 80 MG TAB PO SCH (20:43)
[2022-06-11] MEDS ORDERED: Non-Formulary Item 1 EACH (Gabapentin [Gabapentin] 600 MG Tablet) PO SCH (21:00)
[2022-06-11] MEDS ORDERED: VALSARTAN 40 MG PO SCH (21:00)
[2022-06-12] MEDS: cefTRIAXone\\ROCEPHIN 1 GM in Sodium Chloride 0.9% 100 ML IVPB SCH (00:38)
[2022-06-12] MEDS: Acetaminophen 325 MG TAB PO PRN (01:40)
[2022-06-12] MEDS ORDERED: hydrOXYzine 10 MG TAB PO SCH (05:00)
[2022-06-12 05:10] LABS: #Eosinphils 0.3 thou/uL (0.0-0.7); #Lymphocytes 2.3 thou/uL (1.20-3.40); #Monocytes 0.5 thou/uL (0.11-0.59); %Basophils 0.1 % (0.0-1.0); %Eosinophils 3.9 % (0.0-10.0); %Lymphocytes 28.8 % (21.0-51.0); %Monocytes 6.4 % (0.0-10.0); %Neutrophils 60.9 % (42.0-75.0); Hemoglobin 8.9 g/dL (12.0-16.0); Mean Corpuscular HGB CONC 33.1 g/dL (32.0-36.0); Mean Corpuscular Hemoglobin 30.3 pg (27.0-31.0); Mean Corpuscular Volume 91.4 fl (78.0-98.0); Mean Platelet Volume 9.2 fL (7.4-10.4); Platelet Count 167 10x3/uL (130-400); RBC Distribution Width 13.6 % (11.5-14.5); Red Blood Cell (RBC) Count 2.93 mill/uL (4.20-5.40); White Blood Cell (WBC) Count 8.1 10x3/uL (4.8-10.8)
[2022-06-12 05:38] LABS: Anion Gap 12 mmol/L (10-20); BUN (Urea Nitrogen) 23 mg/dL (9.8-20.1); Calc. Creatinine Clearance 53 mL/min (70-130); Calcium 8.3 mg/dL (7.8-10.44); Carbon Dioxide 21 mmol/L (23-31); Chloride 112 mmol/L (98-107); Estimated GFR 40; Glucose 91 mg/dL (83-110); Sodium 141 mmol/L (136-145)
[2022-06-12] MEDS: Budesonide 0.5 MG/2 ML NEB NEB SCH ×2 (07:35→19:26)
[2022-06-12] MEDS ORDERED: Ergocalciferol 1.25 MG(50,000 UNITS) CAP PO SCH (09:00)
[2022-06-12] MEDS ORDERED: Non-Formulary Item 1 EACH (Fluticasone Propionate [Flonase Allergy Relief] 9.9 ML Bottle) EA NARE SCH (09:00)
[2022-06-12] MEDS: Gabapentin 300 MG CAP PO SCH ×2 (10:04→21:00)
[2022-06-12] MEDS: Valsartan 80 MG TAB PO SCH ×2 (10:04→21:01)
[2022-06-12] MEDS: Atorvastatin Calcium 10 MG TAB PO SCH (10:05)
[2022-06-12] MEDS: Fluticasone Propionate Nasal Spray 16 gm Bottle NASAL SCH (12:09)
[2022-06-12] MEDS: Cephalexin 250 MG CAP PO SCH ×2 (12:09→17:20)
[2022-06-12] MEDS ORDERED: Acetaminophen 500 MG TAB PO SCH (21:45)
[2022-06-13] MEDS: Cephalexin 250 MG CAP PO SCH ×3 (00:05→12:39)
[2022-06-13 05:16] LABS: #Eosinphils 0.3 thou/uL (0.0-0.7); #Lymphocytes 2.3 thou/uL (1.20-3.40); #Monocytes 0.5 thou/uL (0.11-0.59); #Neutrophils 4.9 thou/uL (1.40-6.50); %Basophils 0.2 % (0.0-1.0); %Eosinophils 4.3 % (0.0-10.0); %Lymphocytes 28.8 % (21.0-51.0); %Monocytes 6.7 % (0.0-10.0); Hemoglobin 8.9 g/dL (12.0-16.0); Mean Corpuscular HGB CONC 32.9 g/dL (32.0-36.0); Mean Corpuscular Hemoglobin 30.1 pg (27.0-31.0); Mean Corpuscular Volume 91.5 fl (78.0-98.0); Mean Platelet Volume 8.8 fL (7.4-10.4); Platelet Count 185 10x3/uL (130-400); RBC Distribution Width 13.7 % (11.5-14.5); Red Blood Cell (RBC) Count 2.94 mill/uL (4.20-5.40); White Blood Cell (WBC) Count 8.1 10x3/uL (4.8-10.8)
[2022-06-13 05:37] LABS: Anion Gap 10 mmol/L (10-20); BUN (Urea Nitrogen) 21 mg/dL (9.8-20.1); Calc. Creatinine Clearance 56 mL/min (70-130); Calcium 8.1 mg/dL (7.8-10.44); Carbon Dioxide 22 mmol/L (23-31); Chloride 112 mmol/L (98-107); Estimated GFR 42; Glucose 94 mg/dL (83-110); Potassium 4.1 mmol/L (3.5-5.1); Sodium 140 mmol/L (136-145)
[2022-06-13] MEDS: Budesonide 0.5 MG/2 ML NEB NEB SCH (07:53)
[2022-06-13] MEDS ORDERED: Valsartan 80 MG TAB PO SCH (09:00)
[2022-06-13] MEDS: Gabapentin 300 MG CAP PO SCH (09:35)
[2022-06-13] MEDS: Atorvastatin Calcium 10 MG TAB PO SCH (09:36)
[2022-06-13] MEDS: Fluticasone Propionate Nasal Spray 16 gm Bottle NASAL SCH (09:38)
[2022-06-13 12:51] VITALS: BP 149/67; TEMP 98
== END 2022-06-13 15:14 | DRG 872 ==
LOC: ERS 10:20 → ERHOLD 13:17 → OBSVTOIN 13:40 → 2NO 16:07
PROVIDERS: ADMIT Student in an Organized Health Care Education/Training Program; ATTEND Student in an Organized Health Care Education/Training Program
DX: A41.9 Sepsis, unspecified organism (principal); S06.9XAA Unspecified intracranial injury with loss of consciousness status unknown, initial encounter; N39.0 Urinary tract infection, site not specified; N17.9 Acute kidney failure, unspecified; Z66 Do not resuscitate; R29.6 Repeated falls; K21.9 Gastro-esophageal reflux disease without esophagitis; F41.1 Generalized anxiety disorder; F32.A Depression, unspecified; Z96.652 Presence of left artificial knee joint; I12.9 Hypertensive chronic kidney disease with stage 1 through stage 4 chronic kidney disease, or unspecified chronic kidney disease; N18.32 Chronic kidney disease, stage 3b; W19.XXXA Unspecified fall, initial encounter; E86.1 Hypovolemia; Z79.01 Long term (current) use of anticoagulants; Z79.899 Other long term (current) drug therapy; Z90.710 Acquired absence of both cervix and uterus
CPT/HCPCS: 36415; 51701; 70450; 71045; 80048; 81003; 81015; 83605; 83735; 84100; 84484; 85025; 87040; 87077; 87086; 87186; 93005; 94640; 96374; 96375; J0692; J0696; J3370; J3490; J7120; J7626

== ENCOUNTER 2022-06-17 09:06 | Emergency (ER) | payer MEDICARE, OTHER ==
[2022-06-17 10:44] LABS: ALT (SGPT) 15 U/L (8-55); AST (SGOT) 16 U/L (5-34); Albumin 3.4 g/dL (3.4-4.8); Alkaline Phosphatase 90 U/L (40-110); Anion Gap 14 mmol/L (10-20); BUN (Urea Nitrogen) 28 mg/dL (9.8-20.1); Bilirubin, Total 0.3 mg/dL (0.2-1.2); CK (CPK) 98 U/L (29-168); Calc. Creatinine Clearance 0 mL/min (70-130); Calcium 8.6 mg/dL (7.8-10.44); Carbon Dioxide 25 mmol/L (23-31); Chloride 108 mmol/L (98-107); Estimated GFR 34; Globulin 2.7 g/dL (2.4-3.5); Glucose 92 mg/dL (83-110); Potassium 3.6 mmol/L (3.5-5.1); Protein, Total 6.1 g/dL (5.8-8.1); Sodium 143 mmol/L (136-145)
[2022-06-17 10:48] LABS: #Eosinphils 0.3 thou/uL (0.0-0.7); #Lymphocytes 2.6 thou/uL (1.20-3.40); #Monocytes 0.5 thou/uL (0.11-0.59); #Neutrophils 3.7 thou/uL (1.40-6.50); %Basophils 0.3 % (0.0-1.0); %Eosinophils 4.4 % (0.0-10.0); %Lymphocytes 36.2 % (21.0-51.0); %Monocytes 7.2 % (0.0-10.0); %Neutrophils 51.9 % (42.0-75.0); Hemoglobin 8.7 g/dL (12.0-16.0); Mean Corpuscular HGB CONC 29.8 g/dL (32.0-36.0); Mean Corpuscular Hemoglobin 27.3 pg (27.0-31.0); Mean Corpuscular Volume 91.9 fl (78.0-98.0); Mean Platelet Volume 8.8 fL (7.4-10.4); Platelet Count 240 10x3/uL (130-400); RBC Distribution Width 13.7 % (11.5-14.5); Red Blood Cell (RBC) Count 3.16 mill/uL (4.20-5.40)
[2022-06-17 10:51] LABS: Prothrombin Time 13.7 sec (12.0-14.7)
[2022-06-17 10:52] LABS: D-Dimer Test 2.73 *mcg/mL (0.27-0.43)
[2022-06-17 10:55] LABS: PTT 20.8 sec (22.9-36.1)
[2022-06-17 11:03] LABS: Bilirubin Negative (Negative); Blood, Urine Negative (Negative); Clarity Clear (Clear); Glucose, Urine (Dipstick) Normal (Negative); Ketone, Urine Negative (Negative); Leukocyte Negative Leu/uL (Negative); Nitrite Negative (Negative); Protein, Urine (Dipstick) Negative (Neg-Trace); Specific Gravity, Urine 1.007 (1.002-1.036); Urobilinogen Normal mg/dL (Less than 2); pH, Urine 6.5 (5.0-9.0)
[2022-06-17 11:16] LABS: Hypochromia SLIGHT = 6-15 cells (100X) (0-5/hpf); MDiff Complete? YES; Platelet Morphology Comment Appears Adequate; Polychromasia SLIGHT = 2-3 cells (100X) (0-2/hpf)
== END 2022-06-17 11:58 | disposition home or self-care (01) ==
LOC: ERS 09:06
DX: R53.1 Weakness (principal); I10 Essential (primary) hypertension; Z79.899 Other long term (current) drug therapy; Z86.718 Personal history of other venous thrombosis and embolism; M79.604 Pain in right leg
CPT/HCPCS: 36415; 70450; 71045; 80053; 81003; 82550; 83880; 84484; 85025; 85379; 85610; 85730; 93005

== ENCOUNTER 2023-07-22 12:12 | Outpatient (CLI) | payer MEDICARE, OTHER | END 2023-07-22 12:13 | disposition home or self-care (01) | LOC: BICMAMMO 12:12 | PROVIDERS: ATTEND Student in an Organized Health Care Education/Training Program | DX: Z12.31 Encounter for screening mammogram for malignant neoplasm of breast (principal); Z85.3 Personal history of malignant neoplasm of breast; Z98.890 Other specified postprocedural states | CPT/HCPCS: 77063; 77067 ==